=== PATIENT | male | born 1955 | race Caucasian/White ===

== ENCOUNTER 2025-11-22 16:11 | Emergency (ER) | payer MEDICARE ==
[~2025-11-22] VITALS: Ht 203.2 cm; Wt 82.7 kg
[2025-11-22 16:20] VITALS: BP 120/59; PULSE 89; RESP 16; TEMP 98.1; O2SAT 98
--- NOTE | 2025-11-22 16:40 | Physician Documentation ---
History of Present Illness General Chief Complaint: ALOC Stated Complaint: CT SCAN/ PSYCH EVAL Time Seen by MD: 16:36 History of Present Illness Initial Comments Patient is a 70-year-old male sent in from [facility] for evaluation. According to nursing communication the patient has been aggressive towards staff particularly female staff and was sent to our facility for evalu ation by Psychiatry. 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 The patient is confused and unable to provide additional information he is able to answer some simple questions Medication Reconciliation Allergies: Coded Allergies: empagliflozin (Unverified Allergy, Unknown, 11/22/25) vancomycin (Unverified Allergy, Unknown, 11/22/25) ziprasidone (Unverified Allergy, Unknown, 11/22/25) Past Medical History Past Medical History: Diabetes Review of Systems All Other Systems at this time: Reviewed and Negative Physical Exam Physical Exam Vital Signs: Temperature: 98.1, Source: Oral, Heart Rate: 89, Respiratory Rate: 18, BP: 120/59, Pulse Oximetry: 98, Weight: 82.730 Oxygen Flow Rate: 0 Physical Exam VITALS: Reviewed and as above. GENERAL: Alert, chronically ill-appearing HEENT: Normocephalic, atraumatic, PERRL, EOMI, dry mucosa, no erythema RESPIRATORY: Lungs clear, normal breath sounds, no respiratory distress. CHEST: No accessory muscle use, no retractions CV: Regular rate, rhythm, no edema, no murmur, No: JVD GI: Soft, non-tender, bowels sounds present, no rebound, guarding, or rigidity BACK: No CVA tenderness, or swelling MUSCULOSKELETAL: Right above knee amputation SKIN: Warm and dry, no rash NEURO: Oriented x1, No motor or sensory deficit PSYCH: Normal mood and affect, no agitation Progress Results/Orders Results/Orders Orders - OHLALIZA LARSON MD Ct Head (11/22/25 17:09) Completed Orders - ALIZA COVARRUBIAS MD Cbc/Diff (11/22/25 16:53) BMP (11/22/25 16:53) Ct Head (11/22/25 17:09) Vital Signs 11/22/25 11/22/25 11/22/25 16:14 16:20 16:20 Temp 98.2 98.1 Pulse 86 89 Resp 16 18 16 B/P (MAP) 155/52 120/59 Pulse Ox 98 98 O2 Flow Rate 0 0 Laboratory Tests Test 11/22/25 16:51 White Blood Count 6.6 Red Blood Count 4.23 L Hemoglobin 10.9 L Hematocrit 35.1 L Mean Corpuscular Volume 82.8 Mean Corpuscular Hemoglobin 25.8 L Mean Corpuscular Hemoglobin Concent 31.1 L Red Cell Distribution Width 17.6 H Platelet Count 192 Mean Platelet Volume 10.9 H Neutrophils (%) (Auto) 68.1 Lymphocytes (%) (Auto) 23.2 Monocytes (%) (Auto) 7.0 Eosinophils (%) (Auto) 1.2 Basophils (%) (Auto) 0.5 Neutrophils # (Auto) 4.5 Lymphocytes # (Auto) 1.5 Monocytes # (Auto) 0.5 Eosinophils # (Auto) 0.1 Basophils # (Auto) 0.0 CBC Comment Platelet Estimate Normal Large Platelets Few Red Blood Cell Morphology Perf Basophilic Stippling Anisocytosis 1+ Sodium Level 147 H Potassium Level 4.6 Chloride Level 108 H Carbon Dioxide Level 34.4 H Anion Gap 5 L Blood Urea Nitrogen 40 H Creatinine 0.92 Estimated GFR/1.73 m2 82 BUN/Creatinine Ratio 43.5 H Glucose Level 192 H Calcium Level 9.4 Albumin 3.0 L Chemistry Comments EKG/XRAY/CT/US/VASC/MRI CT : Impression CT CT HEAD INDICATION: aloc EXAM DATE: 11/22/2025 05:09 PM COMPARISON: None TECHNIQUE: CT of the head without intravenous contrast. RADIATION DOSE: CTDIvol: 68 mGy, DLP: 1515 mGy*cm FINDINGS: There is no intracranial hemorrhage. There is no extra-axial fluid, mass, mass effect or midline shift. The ventricles are midline and normal in size. Basilar cisterns are patent. [id number] periventricular and subcortical white matter chronic microvascular ischemic changes. Mild global cerebral volume loss. The paranasal sinuses and mastoids are well-pneumatized. Imaged portion of the orbits are unremarkable. IMPRESSION: No intracranial hemorrhage or mass effect. [id number] chronic microvascular ischemic changes. Mild global cerebral volume loss Electronically Signed by:ROXANNE KING MD Date & Time: 11/22/25 1730 Departure Disposition: 02 SHORT TERM HOSPITAL Impression: Primary Impression: Altered mental status Qualified Codes: R41.82 - Altered mental status, unspecified Discharge Instructions: Confusion Referrals: NO PRIMARY CARE PROVIDER (PCP) ALIZA COVARRUBIAS MD Nov 22, 2025 16:40
--- NOTE | 2025-11-22 17:32 | RADIOLOGY REPORT ---
CT CT HEAD INDICATION: aloc EXAM DATE: 11/22/2025 05:09 PM COMPARISON: None TECHNIQUE: CT of the head without intravenous contrast. RADIATION DOSE: CTDIvol: 68 mGy, DLP: 1515 mGy*cm FINDINGS: There is no intracranial hemorrhage. There is no extra-axial fluid, mass, mass effect or midline shift. The ventricles are midline and normal in size. Basilar cisterns are patent. [id number] periventricular and subcortical white matter chronic microvascular ischemic changes. Mild global cerebral volume loss. The paranasal sinuses and mastoids are well-pneumatized. Imaged portion of the orbits are unremarkable. IMPRESSION: No intracranial hemorrhage or mass effect. [id number] chronic microvascular ischemic changes. Mild global cerebral volume loss
[2025-11-22 17:44] LABS: MEAN PLATELET VOLUME 10.9 FL (7.4-10.4); RED CELL DISTRIBUTION WIDTH 17.6 % (11.5-14.5)
[2025-11-22 17:53] LABS: CREATININE 0.92 MG/DL (0.60-1.10); TOTAL CARBON DIOXIDE 34.4 MMOL/L (24-32); eCRCL 90 ML/MIN; eGFR 82 ML/MIN
[2025-11-22 18:16] LABS: LARGE PLATELETS FEW; PLATELET ESTIMATE NORMAL
== END 2025-11-22 19:30 | disposition short-term general hospital (02) ==
LOC: ER 16:12
DX: R41.82 Altered mental status, unspecified (principal); E11.9 Type 2 diabetes mellitus without complications; Z88.1 Allergy status to other antibiotic agents
CPT/HCPCS: 36415; 70450; 80048; 85008; 85025; 99285